=== PATIENT | male | born 1950 | race Caucasian/White ===

== ENCOUNTER → 2019-03-17 | Outpatient (CLI) | payer OTHER ==
[~2019-03-17] VITALS: Ht 177.8 cm; Wt 95.3 kg
[~2019-03-17] MED LIST: FLOMAX0.4 MG PO; MULTI VITAMIN1 EACH PO; NORVASC 2.5 MG2.5 M1 PO
--- NOTE | ~2019-03-17 | P ---
[facility] [place] [address] PROCEDURE REPORT Name: JELANI GOTTLIEB Room #: REG [facility]#: [id number] Admission: 03/17/19 Attend Phys: Garett Cotto MD Discharge: Date of : 48 Report #: [id number] THIS REPORT FOR: cc: Denise Leigh MD, Cora A. MD Thesing,Garett Kam MD ~ THIS REPORT FOR: //name// CC: Denise Cotto DATE OF SERVICE: 03/17/2019 OUTPATIENT COLONOSCOPY REPORT BRIEF HISTORY: The patient is a 68-year-old male with a history of colon polyps. He does have hemorrhoidal disease and was recently found to have Hemoccult positive stools. PREOPERATIVE DIAGNOSES: History of colon polyps and recent finding of Hemoccult-positive stools. POSTOPERATIVE DIAGNOSES: 1. Multiple colon polyps. 2. Moderately severe sigmoid diverticulosis coli with few scattered diverticula in the proximal colon. 3. Small internal hemorrhoids. MEDICATIONS: Deep sedation with propofol per anesthesia. SPECIMENS: 1. Polyps x 2 from proximal ascending colon. 2. Polyp, proximal transverse colon. 3. Polyp at 60 cm. 4. Polyp at 40 cm. ESTIMATED BLOOD LOSS: 3 mL. PROCEDURE: Colonoscopy to cecum and terminal ileum with biopsy. FINDINGS: Prior to propofol sedation, procedure of colonoscopy discussed with the patient as well as potential risks and its complications. He indicates he understands and desires to proceed. DESCRIPTION OF PROCEDURE: With the patient in left lateral decubitus position, [facility] [address] [place] [address] PROCEDURE REPORT Name: JELANI GOTTLIEB Kristen Room #: REG [facility] Gretel.#: [id number] Admission: 03/17/19 Attend Phys: Garett Cotto MD Discharge: Date of : 48 Report #: [id number] digital examination was completed and hemorrhoids were noted. No other abnormalities were identified. Subsequently, the Olympus video colonoscope was introduced into the rectum, advanced under direct vision to the cecum. Cecum was identified by the ileocecal valve and the appendiceal orifice. I was able to visualize the distal segment of the terminal ileum, which was inspected and noted to be unremarkable. At that point, the scope was slowly withdrawn and careful circumferential views obtained including retroflexion of the scope in the ascending colon. Upon slow withdrawal of the scope, the prep was somewhat limited mostly with retained bilious material. We spent a lot of time irrigating and suctioning, we were able to overall obtain a fairly good prep, although not all the bilious material coating the mucosa could be removed. The patient was noted to have 2 diminutive polyps seen in the proximal ascending colon, removed with biopsy forceps. As we withdrew the scope, another diminutive polyp was removed by with biopsy forceps in the proximal transverse colon and similarly also at 60 cm and 40 cm, a diminutive polyp was seen and removed with biopsy forceps. In addition, he was noted to have moderate sigmoid diverticular disease without endoscopic evidence of diverticulitis. Scope was withdrawn in the rectum. No abnormalities were seen. Upon retroflexion, small hemorrhoids were seen. Scope was withdrawn. The patient tolerated the procedure well. CONDITION OF THE PATIENT UPON DISCHARGE: Following procedure, the patient drowsy and prepared for upper endoscopy. INSTRUCTIONS TO THE PATIENT AND FAMILY AT THE TIME OF DISCHARGE: Five small polyps were identified. Since he had a number of polyps and history of polyps in some limitations of prep, suggest return in 3 years for followup colonoscopy. By: 1028 1230 Garett Cotto MD /nt
--- NOTE | ~2019-03-17 | P ---
[facility] [place] [address] PROCEDURE REPORT Name: JELANI GOTTLIEB Room #: REG [facility]#: [id number] Admission: 03/17/19 Attend Phys: Garett Cotto MD Discharge: Date of : 48 Report #: [id number] THIS REPORT FOR: cc: Denise Leigh MD, Cora A. MD Thesing,Garett Kam MD ~ THIS REPORT FOR: //name// CC: Denise Cotto DATE OF SERVICE: 03/17/2019 PROCEDURE: Upper endoscopy. BRIEF HISTORY: The patient is a 68-year-old male with remote history of ulcer disease and also longstanding reflux symptoms, which have been inadequately controlled. He has had symptoms for greater than 10 years. PREOPERATIVE DIAGNOSIS: History of ulcer disease and poorly controlled reflux symptoms. POSTOPERATIVE DIAGNOSES: 1. Grade A erosive esophagitis. 2. Questionable short segment Lawrence's esophagus. 3. Small sliding type hiatus hernia, 3 cm. 4. Patchy bulbar duodenitis. 5. Mild erythematous gastritis. MEDICATIONS: Deep sedation with propofol per anesthesia. SPECIMENS: 1. Biopsies of gastritis. 2. Biopsy of distal esophagus and GE junction, rule out Lawrence. ESTIMATED BLOOD LOSS: 3 mL. PROCEDURE: EGD with biopsy. FINDINGS: Prior to propofol sedation, procedure of upper endoscopy discussed with the patient as well as potential risks and its complications. He indicates he understands and desires to proceed. DESCRIPTION OF PROCEDURE: With the patient in left lateral decubitus position, the Olympus video endoscope was inserted in the cervical esophagus under direct [facility] [address] [place] [address] PROCEDURE REPORT Name: JELANI GOTTLIEB Room #: REG [facility].#: [id number] Admission: 03/17/19 Attend Phys: Garett Cotto MD Discharge: Date of : 48 Report #: [id number] vision without difficulty. Examination of this organ through its entire length revealed normal esophageal mucosa down the squamocolumnar junction. At the squamocolumnar junction, there were several scattered erosions seen. There was also irregularity of the Z-line, and in one area, there was a questionable short tongue of Lawrence's mucosa. It was flat and examined with white light and narrow banded imaging. Biopsies were obtained. In addition, there was a small sliding type hiatus hernia that measured about 3 cm. The mucosa and hernia was unremarkable. The scope was advanced in the stomach, was examined on end view as well as retroflexed views. There was some erythema in the antrum. He has a history of ulcer disease, but no ulcers were seen. Upon retroflexion, the hiatus hernia was seen. No other abnormalities were identified. Pylorus was unremarkable. Examination of duodenal bulb revealed patchy bulbar duodenitis, but no ulcers or erosions were seen. The postbulbar duodenal sweep was inspected and noted to be unremarkable. At that point, the scope was slowly withdrawn and on careful circumferential views confirmed the above findings. The patient tolerated the procedure well. CONDITION OF THE PATIENT UPON DISCHARGE: Following procedure, the patient drowsy, arousable and conversant and will be discharged home when fully ambulatory. INSTRUCTIONS TO THE PATIENT AND FAMILY AT THE TIME OF DISCHARGE: We will follow up the path. If he has H. pylori in view of his history of ulcer disease, he may benefit from treatment if found. Also, if there is evidence of Lawrence's, confirmatory biopsies in 4 months or so may be indicated. Since he does have esophagitis, we will place him on pantoprazole 40 mg daily. If he does well, can taper in the future, he may do so. However, if he needs daily dosing he should do so. We will make further recommendations to the patient after reviewing the path. He should return to the office for followup as needed. By: 1042 1229 Garett Cotto MD /nt
--- NOTE | 2019-03-18 16:09 | PATH ---
[facility] [address] [address] PATHOLOGY RPT PROCEDURE Name: JOSE C WEBSTER Room #: REG [facility] Gretel.#: [id number] Admission: 03/17/19 Date of : 48 Discharge: Report #: [id number] Path Case #: [id number] [facility] Accession Number: [id number] . 01 Material submitted: . PART A: colon - POLYP AT PROXIMAL ASCENDING COLON X2. Modifiers: proximal, ascending PART B: colon - POLYP AT PROXIMAL TRANSVERSE COLON. Modifiers: proximal, transverse PART C: colon - POLYP AT 60CM PART D: colon - POLYP AT 40CM PART E: stomach - BIOPSY GASTRITIS PART F: esophagus - BIOPSY DISTAL ESOPHAGUS R/O VELAZCO. Modifiers: distal . 01 Clinical history: . Reflux, history of polyps, blood in stool, history of ulcer disease, colon polyps, diverticulosis, hemorrhoids, gastritis. . 02 Diagnosis: A. "Polyp at proximal ascending colon x2", biopsy: - Tubular adenoma; no high grade dysplasia. . B. "Polyp at proximal transverse colon", biopsy: - Hyperplastic polyp. . C. "Polyp at 60 cm", biopsy: - Tubular adenoma; no high grade dysplasia. . D. "Polyp at 4 cm" biopsy: - Tubular adenoma; no high grade dysplasia. . E. "BX gastritis", biopsy: - Gastric mucosa with mild reactive changes, mild chronic inflammation and focal intestinal-type epithelium; no dysplasia seen. (see comment) - Negative H. pylori immunohistochemical stain (block E1); control reacted appropriately. (See comment) . F. "BX distal esophagus R/O Velazco", biopsy: - Esophageal squamous mucosa and gastric cardia-type mucosa with mild reactive changes, mild acute and chronic inflammation and focal intestinal metaplasia, compatible with Velazco's mucosa; no dysplasia seen. . (CLW:adeola; 03/18/2019) [facility] 03/18/2019 1528 Local . 02 Comment: [address] [address] PATHOLOGY RPT PROCEDURE Name: JOSE C WEBSTER [facility] [id number] Admission: 03/17/19 Date of : 48 Discharge: Report #: [id number] Path Case #: [id number] Within specimen E, focal intestinal-type epithelium is noted. This may represent focal intestinal metaplasia in the setting of mild chronic gastritis or a transition to small bowel/duodenal mucosa. While clinical and endoscopic correlation is recommended in all biopsies, within specimen E and F, clinical and endoscopic correlation is required. . (CLW:[email or web address]; 03/18/2019) . 02 Electronically signed: . More Curtis MD, Pathologist NPI- [id number] . 01 Gross description: . A. Received in formalin labeled "Jose C Webster, polyp at proximal ascending colon X2" is a 0.7 x 0.5 x 0.1 cm aggregate of curran-brown soft tissue fragments. The margins are inked. The specimen is submitted entirely in A1. . B. Received in formalin labeled "Jose C Webster, polyp at proximal transverse colon" is a 0.6 x 0.3 x 0.1 cm fragment of curran-brown soft tissue. The margin is inked. The specimen is submitted entirely in B1. . C. Received in formalin labeled "Jose C Webster, polyp at 60 cm" is a 0.5 x 0.5 x 0.1 cm aggregate of curran-brown soft tissue fragments. The specimen is submitted entirely in C1. . D. Received in formalin labeled "Jose C Webster, polyp at 40 cm" is a 0.8 x 0.3 x 0.1 cm fragment of curran-brown soft tissue. The margin is inked. The specimen is submitted entirely in D1. . E. Received in formalin labeled "Jose C Webster, BX gastritis" is a 1.0 x 0.5 x 0.1 cm aggregate of curran-brown soft tissue fragments. The specimen is submitted entirely in E1. . F. Received in formalin labeled "Jose C Webster, BX distal esophagus rule out Velazco" is a 0.6 x 0.3 x 0.1 cm aggregate of curran-brown soft tissue fragments. The specimen is submitted entirely in F1. ([facility]; 03/17/2019) [facility] 03/17/2019 1639 Local . 02 Pathologist provided ICD-10: D12.2, K63.5, D12.6, K29.50, K22.70 . 02 CPT . 188999, 019778, 210329, 975501, 624528, 995458, X42008 Specimen Comment: A courtesy copy of this report has been sent to [phone], [phone] Specimen Comment: [phone] Specimen Comment: Report sent to / DR CHEEK [facility] [address] [place] [address] PATHOLOGY RPT PROCEDURE Name: JOSE C WEBSTER Room #: REG [facility] Arnold#: [id number] Admission: 03/17/19 Date of : 48 Discharge: Report #: [id number] Path Case #: [id number] Performed at: 01 [facility] Nataliya Bell [address], [place], [place] [id number] MD Isaac Fox MD Phone: [phone] Performed at: [address] [facility] [address] [id number] MD Mona Ley MD Phone: [phone]
== END | disposition home or self-care (01) ==
LOC: GI 08:25
DX: R19.5 Other fecal abnormalities (principal); D12.2 Benign neoplasm of ascending colon; D12.4 Benign neoplasm of descending colon; D12.5 Benign neoplasm of sigmoid colon; K57.30 Diverticulosis of large intestine without perforation or abscess without bleeding; K64.8 Other hemorrhoids; K29.50 Unspecified chronic gastritis without bleeding; K29.80 Duodenitis without bleeding; K21.0 Gastro-esophageal reflux disease with esophagitis; K22.70 Barrett's esophagus without dysplasia; K44.9 Diaphragmatic hernia without obstruction or gangrene; I10 Essential (primary) hypertension; Z86.010 Personal history of colon polyps; Z98.890 Other specified postprocedural states; Z79.899 Other long term (current) drug therapy; Z87.19 Personal history of other diseases of the digestive system; Z87.891 Personal history of nicotine dependence; Z87.442 Personal history of urinary calculi
CPT/HCPCS: 62110; 62900